=== PATIENT | female | born 1980 | race African-American/Black ===

== ENCOUNTER 2021-12-12 00:52 | Day surgery (SDC) | payer OTHER, SELFPAY ==
[2021-12-05 14:06] VITALS: BMI 26.6
--- NOTE | 2021-12-05 14:28 | PC.NURSE ---
Report to the Outpatient Waiting Room, entrance under the green pavilion located off [facility], at time 0600 on date 12/12/21. OR Time: 0730. - You will be asked a series of questions to screen for COVID 19 for your protection. - A mask is required within the hospital. - No visitors are allowed at this time. Preoperative COVID Testing Requirements: No COVID Test needed if: (proof is required; if not received patient will have Rapid Test prior to entry) - Patient has received COVID Vaccine at least 14 days prior to procedure date or - Patient has positive COVID test result within last 90 days of surgery date. COVID Test needed if above criteria is not met Patients may have clear liquids (water, carbonated beverages, clear teas, apple juice) until 3 hours prior to surgery with a maximum of 20 ounces. - No food from midnight until time of surgery Take the following medications with a SIP of water the morning of surgery: SERTRALINE Medications to discontinue per physician: N/A Date to take last dose: N/A Please no make-up, nail uzbek, hairspray, perfume, deodorant, or body powder the day of surgery. No jewelry (including any body piercings) or valuables the day of surgery, leave them at home. Please take a shower or bath the night before, or the morning of, surgery with an antibacterial soap. Wear comfortable, loose fitting clothing. - Jewelry must be removed prior to entering the operating room. Rings and piercings that are not removed may be cut off. - The hospital will not accept responsibility for valuables. - Please leave all valuables, including medications, at home the day of surgery. If you are going home after surgery, a licensed driver starting gate must drive you home. - NO public transportation without another adult. - We recommend that an adult stay with you for 24 hours following discharge. - We also recommend that you do not drive, make important decision, drink alcoholic beverages, or take any drugs that were not prescribed by your health care provider for at least 24 hours after your discharge time. Follow any additional instructions given to you from your surgeon. Telephone instructions given to LONDON SAUNDERS and asked if any additional questions and then verbalized understanding. Patient advised to call surgeon office or pre surgery nurse liaison [phone] if any additional questions.
[2021-12-12] VITALS (10 sets, daily range): BP systolic 102–136; BP diastolic 55–85; PULSE 65–86; RESP 14–18; TEMP 36.3–36.8; O2SAT 98–100
[2021-12-12] MEDS: LACTATED RINGERS 1,000 ML 30 ML IV CONT ×2 (06:30→10:25)
[2021-12-12 06:40] LABS: Urine Cotinine NEGATIVE
--- NOTE | 2021-12-12 06:49 | P.PNAN_ITS ---
Anes - Initial Pre Proc Eval Procedure: Operation Date: 12/12/21 07:30 Proposed Procedures p Abdominoplasty - Nhan Austin MD Date/Time: 12/12/21 06:49 Surgeon: Nhan Austin MD Pre Op Diagnosis: skin laxity Patient Data Age: 41 Gender: F Height: 1.65 m Weight: 72.7 kg Allergies Allergy/AdvReac Type Severity Reaction Status Date / Time No Known Allergies Allergy Unverified 12/05/21 14:05 Home Medications Medication Instructions Recorded Confirmed Type hydroxychloroquine 200 mg tablet 200 mg PO DAILY 04/11/21 12/12/21 History mycophenolate mofetil 500 mg tablet 1,000 mg PO Q12H 04/11/21 12/12/21 History sertraline 50 mg tablet 50 mg PO DAILY 04/11/21 12/12/21 History docusate sodium 100 mg capsule 100 mg PO DAILY #14 cap 11/27/21 12/12/21 Rx ondansetron HCl 4 mg tablet 4 mg PO Q8H #21 tablet 11/27/21 12/12/21 Rx carisoprodol 350 mg tablet 350 mg PO TID PRN #21 tablet 11/29/21 12/12/21 Rx hydrocodone 5 mg-acetaminophen 325 1 tablet PO Q6H PRN #30 tablet 11/29/21 12/12/21 Rx mg tablet Laboratory Tests 12/12/21 06:04 Cotinine Negative Patient hx anesthesia problems: other (motion sickness) Family hx anesthesia problems: none Results Review: All pre-operative results and documents have been reviewed as part of the pre-operative evaluation. [facility] Past Medical History Medical History Anxiety History of dysphagia Systemic lupus erythematosus (SLE) in adult Surgical History Surgical History History of bladder repair surgery History of cervical polypectomy History of hysterectomy History of tubal ligation History of ureter repair Family History Family History Mother Obesity Father Mental health problem Social History Social History Smoking status: Never smoker Alcohol intake: never Substance use: current Substance use type: marijuana Other substance usage details: USES AT NIGHT TO HELP SLEEP Living arrangements: with family Spiritual care concerns: No Anes - Eval Final PreProcedure Day of Procedure 12/12/21 06:49 Patient weight: overweight Heart: regular rate and rhythm Lungs: clear to auscultation Airway: Mallampati scale class II Neurological: alert and oriented Last oral intake: >/= 8 hours ASA classification: III Emergent: no Anesthetic plan: proceed Anesthesia type and monitoring: general LMA and standard monitoring Results Review: All pre-operative results and documents have been reviewed as part of the pre-operative evaluation. Informed Consent: The patient's anesthetic plan and its attendant risks and benefits were discussed with the patient/family/POA. Questions were solicited and answers provided to the satisfaction of the patient/family/POA.
--- NOTE | 2021-12-12 06:55 | WPDHPUPDATE1 ---
History and Physical Update Update Date/Time: 12/12/21 06:55 History and Physical has been reviewed, including an updated exam of the patient. There are NO changes in the patient's condition. Risks, benefits, and alternatives have been discussed and questions answered. Patient agrees to proceed with procedure.
[2021-12-12] MEDS: SCOPOLAMINE 1.5 MG PATCH TRANSDERM (07:11)
[2021-12-12] MEDS: TRANEXAMIC ACID 1,000MG/ISO100 1,000 MG/100 ML BAG 200 MG IVPB (07:28)
[2021-12-12] MEDS: ceFAZolin 2 GM/D5W 50 ML 2 GM/50 ML BAG IVPB (07:48)
[2021-12-12] MEDS: LACTATED RINGERS IRRIG 1,000 ML, LIDOCAINE HCL 1% LOCAL INJ 50 ML, EPINEPHrine HCL INJ ... INFILTRATE (08:15)
[2021-12-12] MEDS: BUPIVACAINE/EPINEPHRINE 0.5% 10 ML VIAL 60 ML INFILTRATE (08:17)
--- NOTE | 2021-12-12 10:03 | P.OP_ITS ---
Procedure Note - Detailed Date of Procedure 12/12/21 Pre-op Diagnosis skin laxity Post-op Diagnosis same Procedure Performed Progressive tension abdominoplasty Surgeon Nhan Austin MD Anesthesia general Findings Tissue removed: 1431.7 grams Description of Procedure They are here today for abdominoplasty. Previously and again today the risks, benefits, alternatives were discussed in extensive detail. I wanted them to be very realistic about the risks involved as well as expectations. We discussed aftercare and what to monitor for. I was very upfront about the risks of wound breakdown leading to loss of skin, open wounds, and need for additional pr ocedures with permanent abdominal deformity. We discussed DVT/PE risks and management. Made sure answered all of their questions to their satisfaction today and consent was obtained. They were marked in the preoperative holding area with their verification. The patient was taken to the operating room placed supine on the operating table. Anesthesia was provided by anesthesiology. A Cote catheter was started. They were prepped and draped in a standard sterile fashion. A surgical time-out was taken. I placed the patient in a flexed position to verify the upper and lower markings would reach. I then placed supine. A thorough abdominal examination was completed. Stab incisions were made and tumescent solution infiltrated. A 10 blade was used to make the upper incision. I continued dissection down to the level of fascia. Elevated just what was necessary for repair of the diastasis, discontinuous undermining superior / lateral. I then again flexed the bed to verify the upper skin flap would reach the lower markings without tension. Once verified I placed her supine once again and a 10 blade used to make the lower incision. I elevated up to level the umbilicus and left the umbilicus intact on a well-vascularized stalk. The intervening tissue was removed. A 2 mm blunt cannula with 0.5% bupivicaine was injected deep to the fascia bilaterally. I plicated the diastasis recti using 0 PDO stratafix barbed suture. This was in 2 separate layers using 2 separate sutures as well. I repaired around the umbilicus leaving plenty of room for well-vascularized stalk of the umbilicus with 2-0 PDS. I also repaired lateral to the rectus using two layers of 0 PDO stratafix. The patient was flexed and starting from superior to inferior began plication using 2-0 Vicryl to obliterate all space in a standard progressive tension fashion. At the umbilicus I marked out the location of the skin and inset this with 3-0 Monocryl and 4-0 Vicryl. I continued the remainder of the plication using 2-0 Vicryl until I reached my lower planned scar line. I trimmed any excess skin of the upper flap making sure this was a tension-free closure. I then approximated using a 3 point suture with 2-0 Vicryl followed by 3-0 stratafix ,running subcuticular 4-0 Monocryl, and tissue glue. Fluffs and an abdominal binder were placed. The patient was transferred to the bed in a flexed position. Awoken and taken to the PACU without difficulty. All instrument and sponge counts were correct at the end of the case. Estimated Blood Loss 30 Drains No Packing No Pathology none sent Complications No immediate complications Condition stable Disposition PACU
--- NOTE | 2021-12-12 11:01 | SUR.PHASEI ---
Simple mask removed at 1100.
--- NOTE | 2021-12-12 12:01 | PC.NURSE ---
This patient, Luda Suazo, was received from PACU via bed on 12/12/21 at 1201. Patient oriented to unit policies and routines
[2021-12-12] MEDS: ONDANSETRON INJ 4 MG/2 ML VIAL IV PUSH ×2 (12:29→18:08)
[2021-12-12] MEDS: LACTATED RINGERS 1,000 ML 125 ML IV CONT ×2 (12:29→20:19)
[2021-12-12] MEDS: diazePAM (*CRX) 5 MG TABLET PO (16:41)
[2021-12-12] MEDS: MORPHINE SULFATE (*CRX) 2 MG/ML INJ IV PUSH ×2 (18:08→22:33)
[2021-12-12] MEDS: carisoprodoL (*CRX) 350 MG TABLET PO (18:08)
[2021-12-12] MEDS: METOCLOPRAMIDE HCL INJ 10 MG/2 ML VIAL (21:27)
[2021-12-13 00:15] VITALS: BP 104/67; PULSE 72; RESP 16; TEMP 37; O2SAT 99
[2021-12-13] MEDS: ONDANSETRON INJ 4 MG/2 ML VIAL IV PUSH ×2 (01:15→08:58)
[2021-12-13] MEDS: carisoprodoL (*CRX) 350 MG TABLET PO ×2 (02:44→12:39)
[2021-12-13] MEDS: LACTATED RINGERS 1,000 ML 125 ML IV CONT (04:27)
[2021-12-13 04:30] VITALS: BP 121/71; PULSE 84; RESP 16; TEMP 37.2; O2SAT 98
[2021-12-13] MEDS: IBUPROFEN 600 MG TABLET PO (04:44)
[2021-12-13 06:45] VITALS: BP 106/69; PULSE 88; RESP 16; TEMP 37.4; O2SAT 100
[2021-12-13] MEDS: DOCUSATE SODIUM 100 MG CAPSULE PO (08:57)
[2021-12-13] MEDS: SERTRALINE HCL 50 MG TABLET PO (08:57)
[2021-12-13] MEDS: ENOXAPARIN 40 MG/0.4 ML SYRINGE SUB-Q (08:58)
[2021-12-13] MEDS: HYDROcodone/acetaminophen (*CRX) 5-325 MG TABLET 1 TAB PO (09:06)
[2021-12-13] MEDS: HYDROXYCHLOROQUINE SULFATE 200 MG TABLET PO (10:51)
--- NOTE | 2021-12-13 11:32 | WPDPN ---
Progress Note: A&P Assessment and Plan (1) Skin laxity: Code(s): L57.4 - Cutis laxa senilis Status: Acute Assessment and Plan: She is doing well after progressive tension abdominoplasty. Will discharge home. I will see her back. Today we had a lengthy discussion about the care. What monitor for. Activity limitations. She will call with any questions or concerns. Subjective Date/time seen: 12/13/21 11:25 She is doing very well after progressive tension abdominoplasty. Tolerating p.o.. She has ambulated. No fevers or chills. No nausea vomiting. No shortness of breath. No chest pain. No calf tenderness. Review of Systems Review of Systems: All systems reviewed & are unremarkable except as noted in HPI and below Exam Narrative: Alert and oriented no obvious distress Respiratory on labored Abdomen soft. No signs of infection. No hematoma. No seroma. Good color and capillary refill. No calf tenderness. Negative Homans. Objective Data Vital Signs Vital Signs: Vital Signs - 24 hr 12/12/21 11:40 12/12/21 11:50 12/12/21 12:05 Temperature 36.8 C Pulse Rate 81 69 80 Respiratory Rate 16 16 16 Blood Pressure 107/72 116/74 122/70 Pulse Oximetry 100 100 98 12/12/21 16:00 12/12/21 19:50 12/13/21 00:15 Temperature 36.6 C 36.8 C 37.0 C Pulse Rate 75 65 72 Respiratory Rate 14 18 16 Blood Pressure 117/59 L 123/76 104/67 Pulse Oximetry 98 100 99 12/13/21 04:30 12/13/21 06:45 Temperature 37.2 C 37.4 C Pulse Rate 84 88 Respiratory Rate 16 16 Blood Pressure 121/71 106/69 Pulse Oximetry 98 100 Intake/Output Intake/Output: Intake & Output 12/10/21 12/11/21 12/12/21 12/13/21 23:59 23:59 23:59 23:59 Intake Total 1500 1000 Output Total 960 925 Balance 540 75 Meds/Results Medications: Active Medications Generic Name Dose Route Start Last Admin Trade Name Freq PRN Reason Stop Dose Admin Hydrocodone Bitart/Acetaminophen 1 tab 12/12/21 10:07 12/13/21 09:06 Hydrocodone/Acetaminophen (*Crx) 5-325 Mg Tablet PO 1 tab Q6H PRN Administration Pain Rated 4-6 Carisoprodol 350 mg 12/12/21 18:00 12/13/21 02:44 Carisoprodol (*Crx) 350 Mg Tablet PO 350 mg Q6HR FRANCY Administration Diazepam 5 mg 12/12/21 10:07 12/12/21 16:41 Diazepam (*Crx) 5 Mg Tablet PO 5 mg TID PRN Administration Anxiety Docusate Sodium 100 mg 12/12/21 21:00 12/13/21 08:57 Docusate Sodium 100 Mg Capsule PO 100 mg Q12HR FRANCY Administration Enoxaparin Sodium 40 mg 12/13/21 09:00 12/13/21 08:58 Enoxaparin 40 Mg/0.4 Ml Syringe SUB-Q 40 mg DAILY FRANCY Administration Hydroxychloroquine Sulfate 200 mg 12/13/21 08:00 12/13/21 10:51 Hydroxychloroquine Sulfate 200 Mg Tablet PO 200 mg DAILY@0800 FRANCY Administration Lactated Ringer's 1,000 mls @ 125 mls/hr 12/12/21 10:10 12/13/21 04:27 Lr - Lactated Ringers Iv IV CONT 125 mls/hr .Q8H FRANCY Administration Ibuprofen 600 mg 12/12/21 11:55 12/13/21 04:44 Ibuprofen 600 Mg Tablet PO 600 mg TID PRN Administration pain rated 1-3 Metoclopramide HCl 5 mg 12/12/21 20:54 Metoclopramide Hcl Inj 10 Mg/2 Ml Vial IV PUSH Q6HR PRN Nausea And Vomiting Morphine Sulfate 2 mg 12/12/21 10:07 12/12/21 22:33 Morphine Sulfate (*Crx) 2 Mg/Ml Inj IV PUSH 2 mg Q2H PRN Administration Pain Mycophenolate Mofetil 1,000 mg 12/12/21 21:00 12/12/21 22:32 Mycophenolate Mofetil 250 Mg Capsule PO Not Given Q12HR FRANCY Ondansetron HCl 4 mg 12/12/21 10:07 12/13/21 08:58 Ondansetron Inj 4 Mg/2 Ml Vial IV PUSH 4 mg Q6H PRN Administration Nausea Sertraline HCl 50 mg 12/13/21 09:00 02/04/22 08:57 Sertraline Hcl 50 Mg Tablet PO 50 mg DAILY FRANCY Administration
--- NOTE | 2021-12-13 11:37 | P.DS_ITS ---
DS: Admitting Diagnosis Discharge Date 12/13/2021 Admitting Diagnosis Skin laxity DS: Discharge Diagnosis Discharge Diagnosis (1) Skin laxity: Code(s): L57.4 - Cutis laxa senilis Status: Acute DS: Summary Hospital Course Hospital Course: She underwent progressive tension abdominoplasty. Postoperatively he had some nausea however this has improved. She tolerated diet. Pain controlled. Ambulating. Will discharge home. Time Spent with Patient Time attestation: Total time spent providing and/or coordinating discharge services: 30 minutes Exam Narrative: Alert and oriented no obvious distress Respiratory on labored Abdomen soft. No signs of infection. No hematoma. No seroma. Good color and capillary refill. No calf tenderness. Negative Homans. Discharge Plan Discharge Patient Disposition: Home, Self-Care Discharge Instructions: POST OPERATIVE DISCHARGE INSTRUCTIONS NHAN AUSTIN M.D. [facility] [id number] [place] [address] * No driving for 24 hours after anesthesia and while you are taking pain medication. * Take all prescribed medication as directed * Diet as tolerated. * No lifting or activity that raises blood pressure for 48 hours. * Regular walking / ambulation. * No showering until directed to. Once you shower do not take pain medication before showering as the combination of medication and heat may cause you to feel dizzy or pass out. * No pools or tubs for 2 weeks. * Call with any questions or concerns. * Slowly stand up straight as tolerated over the week. * No straining or lifting more than 20 pounds for 6 weeks. * Dressing Care: May shower. Abdominal binder 23 hours per day. If you have any questions or concerns, please call the office . If it is after hours you will be directed to the software test and validation engineer exchange. Shortness of breath, chest pain, or other medical emergency dial 911 / proceed to the Emergency Room. Stand Alone Forms: General Discharge Instructions Follow-up/Referrals: Nhan Austin MD [Physician] - 1 Week Discharge Medications: New ibuprofen 600 mg Tablet 600 mg PO TID PRN (Reason: pain rated 1-3 ) Qty: 21 RF: 0 Continued hydroxychloroquine 200 mg tablet 200 mg PO DAILY RF: 0 mycophenolate mofetil 500 mg tablet 1,000 mg PO Q12H RF: 0 sertraline 50 mg tablet 50 mg PO DAILY RF: 0 docusate sodium [Colace] 100 mg capsule 100 mg PO DAILY Qty: 14 RF: 0 ondansetron HCl 4 mg tablet 4 mg PO Q8H Qty: 21 RF: 0 carisoprodol [Soma] 350 mg tablet 350 mg PO TID PRN (Reason: muscle pain) Qty: 21 RF: 0 hydrocodone-acetaminophen 5-325 mg tablet 1 tablet PO Q6H PRN (Reason: pain) Qty: 30 RF: 0 Attending physician on admission: Nhan Austin
--- NOTE | 2021-12-13 11:47 | PC.NURSE ---
1130-Pt refused cellcept medication. 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
== END 2021-12-13 15:47 | disposition home or self-care (01) ==
LOC: ANHSURGERY 05:48 → ANHOB2 11:58
PROVIDERS: PCP Nurse Practitioner Family; Visit Provider Surgery Plastic and Reconstructive Surgery
PROC: (CPT 15830; principal; 2021-12-12 07:30)
DX: Z41.1 Encounter for cosmetic surgery (principal); L57.4 Cutis laxa senilis; M62.08 Separation of muscle (nontraumatic), other site; Z79.899 Other long term (current) drug therapy; F12.90 Cannabis use, unspecified, uncomplicated
CPT/HCPCS: 15830; 15847; 80307; 99199; A9270; J0171; J0330; J0690; J1100; J1170; J1650; J2250; J2270; J2405; J2704; J2765; J3010; J7120

== ENCOUNTER 2022-03-12 14:00 | Outpatient (RCR) | payer OTHER, SELFPAY ==
--- NOTE | 2022-02-13 17:22 | STOPEVAL ---
Thank you for referring Luda Suazo to [facility].? The patient is scheduled to be seen for therapy? 1x/week for 1 week. Please review, sign, date and return this plan of care DAVE. I agree with and certify that the following plan of care is medically necessary. Referring Physician Date Attending Provider: Meme Tatum, REFRIGERATION MECHANIC HELPER Assessment Status Assessment Status Evaluation Outpatient Past Medical History Past Medical History No Past Medical/Surgical History Patient/Family Denies Significant Past Medical/ Surgical History Evaluation Information Problem Diagnosis dysphagia Onset August 2021 Additional Evaluation Detail Patient reports a history of Lupus, diagnosed in 2008. 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 Swallowing pills multiple pills after swallowed throat felt funny, then smaller ones and the big ones individually, then even the big ones without great effort, than turned to difficulty swallowing foods such as bread. PATIENT'S COMMENTS: August 2021 got worse, not eating much, fiance took to ED, hospital, dysphagia for not swallowing right. Could not initiate a swallow, stated she felt that it was on tongue and top of throat, even anxious to swallowing thin liquids. blood sugar low, lost 10 pounds. no blockage. MBS was normal. EGD: no blockages. At [facility] follow up with speech therapy. Therapist at [facility] taught: massages, blow bubbles. surgery, she feels it made her swallowing get worse. Seems to have other issues that parallel Lupus flares. Not
--- NOTE | 2022-03-12 16:35 | STOPEVAL ---
SPEECH THERAPY DISCHARGE SUMMARY Thank you for referring Luda Suazo to [facility].? Patient has been seen for an initial evaluation and three follow up treatments for instruction for home program and progress. Patient is being discharged at this time due to goals achieved. See below for details. I agree with treatment and discharge. Referring Physician Date Attending Provider: Meme Tatum, APC Assessment Status Assessment Status Evaluation Pain Assessment Timing of Pain Assessment Timing of Pain Assessment Pre-Treatment Self Report Self Report Pain Level 0 Pain Score Pain Score 0: Self Report ST Clinical Summary Clinical Summary ST Clinical Summary This patient was seen for an initial Speech Therapy evaluation for swallowing due to previous choking episode and fear of choking. Therapy focused on instruction for relaxation and breathing techniques along with swallowing strengthening exercises and safe swallowing strategies. Patient voiced that she appreciated that this therapist treated her swallowing issue as a real disorder and not just a mental health issue. At time of discharge, she reports she is trying to consume foods that she had not eaten in a long time but also she is making good choices when placed in an unusual situation (i.e. ordering foods that are softer or easier to swallow when in a public place in order to avoid an episode of choking in front of others and using relaxation and breathing techniques to prevent choking). The patient reported that she had been visiting with her best friend for the past several days. She stated that during one meal of sushi roll and rice, she felt that even though she had been using chin tuck and hard swallow, the food had become stuck in her
== END 2022-03-14 10:43 | disposition home or self-care (01) ==
LOC: ANHST 14:00
PROVIDERS: PCP Nurse Practitioner Family; Visit Provider Nurse Practitioner Family
DX: R13.19 Other dysphagia (principal)
CPT/HCPCS: 92526; 92610